=== PATIENT | male | born 1950 | race Caucasian/White ===

== ENCOUNTER 2018-06-05 15:43 | Outpatient (CLI) | payer MEDICARE, OTHER ==
--- NOTE | 2018-06-05 16:47 | ULT ---
BILATERAL RENAL ULTRASOUND COMPLETE INCLUDING COLOR AND SPECTRAL DOPPLER AND VASCULAR DUPLEX EVALUATI ON: 06/05/18 The right kidney measures 9.8 x 4.9 x 5.0 cm. The left kidney measures 11.1 x 5.0 x 5.4 cm. No renal hydronephrosis. No perinephric process. The bladder appears unremarkable. There is some minimal incre ased velocity in the right renal artery maximum peak systolic velocity of 199 cm/s. Left renal artery to aortic ratio equals 3.0. Resistive indices are minimally elevated bilaterally at 0.73 on the righ t and 0.74 on the left. There is evidence for some nodular prostate gland indenting the base of the b ladder. IMPRESSION: No renal hydronephrosis. Some borderline measurements bilaterally for the possibility of some renal a rtery stenosis. Followup CT angiogram of the abdomen and renal arteries is recommended for further assessment in this regard. POS: BEN
== END 2018-06-05 15:44 | disposition home or self-care (01) ==
LOC: ULT 15:43
PROVIDERS: ATTEND Internal Medicine Nephrology
DX: I12.9 Hypertensive chronic kidney disease with stage 1 through stage 4 chronic kidney disease, or unspecified chronic kidney disease (principal); N18.3 Chronic kidney disease, stage 3 (moderate)
CPT/HCPCS: 76700; 76770

== ENCOUNTER 2020-06-17 11:43 | Inpatient (IN) | payer MEDICARE, OTHER ==
[2020-06-17] MEDS ORDERED: Albuterol 200 PUFF (6.7GM INHALER) ONE (12:18)
[2020-06-17] MEDS ORDERED: methylPREDNISolone Sod Succ/PF 125 MG/2 ML VIAL ONE (12:19)
[2020-06-17] MEDS ORDERED: Magnesium 2 GM/50 ML BAG (IN WATER) ONE (12:19)
[2020-06-17 13:41] LABS: SARS-CoV-2 NAA Rapid Test DETECTED (NotDetected)
[2020-06-17 14:10] LABS: Hemoglobin 13.5 g/dL (14.0-18.0); Mean Corpuscular HGB CONC 33.7 g/dL (32.0-36.0); Mean Corpuscular Hemoglobin 31.2 pg (27.0-31.0); Mean Corpuscular Volume 92.4 fL (78.0-98.0); Platelet Count 167 thou/uL (130-400); RBC Distribution Width 13.2 % (11.5-14.5); Red Blood Cell (RBC) Count 4.32 mill/uL (4.70-6.10); White Blood Cell (WBC) Count 7.8 thou/uL (4.8-10.8)
[2020-06-17 14:17] LABS: ALT (SGPT) 16 U/L (8-55); AST (SGOT) 22 U/L (5-34); Albumin 3.5 g/dL (3.4-4.8); Alkaline Phosphatase 77 U/L (40-110); Anion Gap 15 mmol/L (10-20); BUN (Urea Nitrogen) 31 mg/dL (8.4-25.7); Bilirubin, Total 0.4 mg/dL (0.2-1.2); Calc. Creatinine Clearance 0 mL/min (70-130); Calcium 8.3 mg/dL (7.8-10.44); Carbon Dioxide 17 mmol/L (23-31); Chloride 109 mmol/L (98-107); Globulin 3.4 g/dL (2.4-3.5); Glucose 118 mg/dL (80-115); Potassium 3.7 mmol/L (3.5-5.1); Protein, Total 6.9 g/dL (5.8-8.1); Sodium 137 mmol/L (136-145)
[2020-06-17 14:29] LABS: Band 26 % (5-11); Eosinophils 1 % (0-10); Lymphocytes 19 % (21-51); MDiff Complete? YES; Monocytes 14 % (0-10); Neutrophil 30 % (42-75); Platelet Morphology Comment Appears Adequate; RBC Morphology Normal; Reactive Lymphocytes 10 % (0-10)
[2020-06-17 14:39] LABS: CKMB 0.5 ng/mL (0-6.6)
[2020-06-17] MEDS ORDERED: cefTRIAXone\\ROCEPHIN 2 GM VIAL ONE (15:09)
[2020-06-17] MEDS ORDERED: Ondansetron PF 4 MG/2 ML Vial IVP PRN (15:17)
[2020-06-17] MEDS ORDERED: Acetaminophen 325 MG TAB PO PRN (15:17)
[2020-06-17] MEDS ORDERED: Bisacodyl 5 MG TAB PO PRN (15:17)
[2020-06-17] MEDS ORDERED: Guaifenesin DM 100-10/5 ML UDCUP PO PRN (15:17)
[2020-06-17] MEDS ORDERED: Azithromycin 500 MG VIAL ONE (15:27)
[2020-06-17] MEDS ORDERED: Dexamethasone 4 mg/ml Vial SLOW IVP SCH (15:30)
[2020-06-17] MEDS ORDERED: Nicotine 21 MG PATCH TD SCH (16:15)
[2020-06-17] MEDS ORDERED: Sodium Chloride 0.9% 1,000 ML IV SCH (16:30)
[2020-06-17 17:03] LABS: Troponin I 0.035 ng/mL (< 0.028)
[2020-06-17 17:48] VITALS: BMI 24.4
[2020-06-17] MEDS ORDERED: Albuterol Sulfate 2.5 mg/3 ml Neb EZPAP SCH (18:30)
[2020-06-17] MEDS: Cefepime 1 GM in Sodium Chloride 0.9% 100 ML IVPB SCH (21:37)
[2020-06-17] MEDS: Doxycycline 100 MG CAP PO SCH (21:38)
[2020-06-17] MEDS: Albuterol 200 PUFF (6.7GM INHALER) INH SCH (22:30)
[2020-06-17 22:45] LABS: Troponin I 0.031 ng/mL (< 0.028)
[2020-06-18] MEDS: Albuterol 200 PUFF (6.7GM INHALER) INH SCH ×6 (02:30→21:26)
[2020-06-18] MEDS: HYDROcodone/Acetaminophen 5/325 mg Tablet PO PRN ×2 (03:23→21:53)
[2020-06-18 05:50] LABS: #Basophils 0.1 thou/uL (0.0-0.2); #Lymphocytes 0.9 thou/uL (1.20-3.40); #Monocytes 0.5 thou/uL (0.11-0.59); #Neutrophils 4.4 thou/uL (1.40-6.50); %Basophils 1.8 % (0.0-1.0); %Eosinophils 0.1 % (0.0-10.0); %Lymphocytes 15.6 % (21.0-51.0); %Monocytes 8.4 % (0.0-10.0); %Neutrophils 74.2 % (42.0-75.0); Hemoglobin 12.5 g/dL (14.0-18.0); Mean Corpuscular HGB CONC 34.1 g/dL (32.0-36.0); Mean Corpuscular Hemoglobin 31.5 pg (27.0-31.0); Mean Corpuscular Volume 92.3 fL (78.0-98.0); Mean Platelet Volume 8.8 fL (7.4-10.4); Platelet Count 176 thou/uL (130-400); Red Blood Cell (RBC) Count 3.97 mill/uL (4.70-6.10)
[2020-06-18 07:01] LABS: Anion Gap 13 mmol/L (10-20); BUN (Urea Nitrogen) 36 mg/dL (8.4-25.7); Calc. Creatinine Clearance 35 mL/min (70-130); Calcium 8.4 mg/dL (7.8-10.44); Carbon Dioxide 19 mmol/L (23-31); Chloride 109 mmol/L (98-107); Glucose 158 mg/dL (80-115); Potassium 3.8 mmol/L (3.5-5.1); Sodium 137 mmol/L (136-145)
[2020-06-18] MEDS: Ascorbic Acid 500 mg Chewable Tablet PO SCH (08:06)
[2020-06-18] MEDS: Doxycycline 100 MG CAP PO SCH ×2 (08:06→21:21)
[2020-06-18] MEDS: Zinc Sulfate 220 MG CAP PO SCH (08:06)
[2020-06-18] MEDS: Aspirin 81 mg Enteric Coated Tablet PO SCH (08:06)
[2020-06-18] MEDS: Dexamethasone 4 mg/ml Vial SLOW IVP SCH (08:10)
[2020-06-18] MEDS: Cefepime 1 GM in Sodium Chloride 0.9% 100 ML IVPB SCH ×2 (08:11→21:21)
[2020-06-18] MEDS: Enoxaparin Sodium 30 MG/0.3 ML SYRINGE SC SCH (08:12)
[2020-06-18] MEDS ORDERED: FLU VACC QS2020-21(65YR UP)/PF 240 MCG/0.7 ML SYRINGE IM ONE (09:00)
[2020-06-18] MEDS: Gabapentin 300 MG CAP PO SCH ×3 (10:43→21:21)
[2020-06-18] MEDS: Clopidogrel Bisulfate 75 MG TAB PO SCH (10:43)
[2020-06-18] MEDS: Carvedilol 6.25 MG TAB PO SCH ×2 (10:43→21:25)
[2020-06-18] MEDS: Amlodipine 10 MG TAB PO SCH ×2 (10:43→21:25)
[2020-06-18] MEDS ORDERED: Nicotine 21 MG PATCH TOP SCH (11:00)
[2020-06-18] MEDS: Tamsulosin HCl 0.4 MG CAP PO SCH (21:22)
[2020-06-18] MEDS: Atorvastatin Calcium 40 MG TAB PO SCH (21:25)
[2020-06-19] MEDS: Albuterol 200 PUFF (6.7GM INHALER) INH SCH ×5 (01:44→18:33)
[2020-06-19] MEDS: Cefepime 1 GM in Sodium Chloride 0.9% 100 ML IVPB SCH ×2 (07:29→20:15)
[2020-06-19] MEDS: Ascorbic Acid 500 mg Chewable Tablet PO SCH (07:29)
[2020-06-19] MEDS: Carvedilol 6.25 MG TAB PO SCH ×2 (07:30→20:14)
[2020-06-19] MEDS: Clopidogrel Bisulfate 75 MG TAB PO SCH (07:30)
[2020-06-19] MEDS: Zinc Sulfate 220 MG CAP PO SCH (07:30)
[2020-06-19] MEDS: Aspirin 81 mg Enteric Coated Tablet PO SCH (07:30)
[2020-06-19] MEDS: Dexamethasone 4 mg/ml Vial SLOW IVP SCH (07:30)
[2020-06-19] MEDS: Amlodipine 10 MG TAB PO SCH ×2 (07:31→20:13)
[2020-06-19] MEDS: Gabapentin 300 MG CAP PO SCH ×3 (07:31→20:11)
[2020-06-19] MEDS: Doxycycline 100 MG CAP PO SCH ×2 (07:31→20:13)
[2020-06-19] MEDS: Enoxaparin Sodium 30 MG/0.3 ML SYRINGE SC SCH (07:33)
[2020-06-19] MEDS ORDERED: Furosemide 100 MG/10 ML VIAL SLOW IVP SCH (08:15)
[2020-06-19] MEDS: Nicotine 21 MG PATCH TOP SCH (10:31)
[2020-06-19] MEDS: Atorvastatin Calcium 40 MG TAB PO SCH (20:13)
[2020-06-19] MEDS: Tamsulosin HCl 0.4 MG CAP PO SCH (20:15)
[2020-06-20] MEDS: Albuterol 200 PUFF (6.7GM INHALER) INH SCH ×7 (00:39→22:42)
[2020-06-20 05:04] LABS: #Lymphocytes 1.8 thou/uL (1.20-3.40); #Monocytes 1.8 thou/uL (0.11-0.59); #Neutrophils 13.4 thou/uL (1.40-6.50); %Basophils 0.1 % (0.0-1.0); %Eosinophils 0.1 % (0.0-10.0); %Lymphocytes 10.5 % (21.0-51.0); %Monocytes 10.6 % (0.0-10.0); %Neutrophils 78.7 % (42.0-75.0); Hemoglobin 12.6 g/dL (14.0-18.0); Mean Corpuscular HGB CONC 33.5 g/dL (32.0-36.0); Mean Corpuscular Hemoglobin 30.7 pg (27.0-31.0); Mean Corpuscular Volume 91.5 fL (78.0-98.0); Mean Platelet Volume 9.3 fL (7.4-10.4); Platelet Count 217 thou/uL (130-400)
[2020-06-20 05:24] LABS: Anion Gap 13 mmol/L (10-20); BUN (Urea Nitrogen) 44 mg/dL (8.4-25.7); CRP (Inflammatory) 4.41 mg/dL (= or < 0.5); Calc. Creatinine Clearance 35 mL/min (70-130); Calcium 8.5 mg/dL (7.8-10.44); Carbon Dioxide 22 mmol/L (23-31); Chloride 109 mmol/L (98-107); Glucose 125 mg/dL (80-115); Potassium 3.5 mmol/L (3.5-5.1); Sodium 140 mmol/L (136-145)
[2020-06-20] MEDS: Carvedilol 6.25 MG TAB PO SCH ×2 (07:18→20:43)
[2020-06-20] MEDS: Enoxaparin Sodium 30 MG/0.3 ML SYRINGE SC SCH (07:18)
[2020-06-20] MEDS: Zinc Sulfate 220 MG CAP PO SCH (07:19)
[2020-06-20] MEDS: Ascorbic Acid 500 mg Chewable Tablet PO SCH (07:19)
[2020-06-20] MEDS: Gabapentin 300 MG CAP PO SCH ×3 (07:19→20:43)
[2020-06-20] MEDS: Amlodipine 10 MG TAB PO SCH ×2 (07:19→20:43)
[2020-06-20] MEDS: Aspirin 81 mg Enteric Coated Tablet PO SCH (07:20)
[2020-06-20] MEDS: Doxycycline 100 MG CAP PO SCH ×2 (07:20→20:43)
[2020-06-20] MEDS: Dexamethasone 4 mg/ml Vial SLOW IVP SCH (07:20)
[2020-06-20] MEDS: Clopidogrel Bisulfate 75 MG TAB PO SCH (07:20)
[2020-06-20] MEDS: Cefepime 1 GM in Sodium Chloride 0.9% 100 ML IVPB SCH ×2 (08:44→20:50)
[2020-06-20] MEDS: Nicotine 21 MG PATCH TOP SCH (09:22)
[2020-06-20] MEDS: Tamsulosin HCl 0.4 MG CAP PO SCH (20:43)
[2020-06-20] MEDS: Atorvastatin Calcium 40 MG TAB PO SCH (20:44)
[2020-06-21] MEDS: Albuterol 200 PUFF (6.7GM INHALER) INH SCH ×5 (03:14→15:07)
[2020-06-21 05:05] LABS: #Neutrophils 11.9 thou/uL (1.40-6.50); %Basophils 0.2 % (0.0-1.0); %Eosinophils 0.3 % (0.0-10.0); %Lymphocytes 12.4 % (21.0-51.0); %Monocytes 12.7 % (0.0-10.0); %Neutrophils 74.3 % (42.0-75.0); Hemoglobin 12.7 g/dL (14.0-18.0); Mean Corpuscular HGB CONC 33.6 g/dL (32.0-36.0); Mean Corpuscular Hemoglobin 30.8 pg (27.0-31.0); Mean Corpuscular Volume 91.7 fL (78.0-98.0); Platelet Count 256 thou/uL (130-400); RBC Distribution Width 13.1 % (11.5-14.5); Red Blood Cell (RBC) Count 4.11 mill/uL (4.70-6.10)
[2020-06-21] MEDS: Clopidogrel Bisulfate 75 MG TAB PO SCH (07:17)
[2020-06-21] MEDS: Carvedilol 6.25 MG TAB PO SCH (07:17)
[2020-06-21] MEDS: Doxycycline 100 MG CAP PO SCH (07:17)
[2020-06-21] MEDS: Gabapentin 300 MG CAP PO SCH ×2 (07:17→15:06)
[2020-06-21] MEDS: Amlodipine 10 MG TAB PO SCH (07:17)
[2020-06-21] MEDS: Ascorbic Acid 500 mg Chewable Tablet PO SCH (07:17)
[2020-06-21] MEDS: Zinc Sulfate 220 MG CAP PO SCH (07:18)
[2020-06-21] MEDS: Enoxaparin Sodium 30 MG/0.3 ML SYRINGE SC SCH (07:18)
[2020-06-21] MEDS: Aspirin 81 mg Enteric Coated Tablet PO SCH (07:18)
[2020-06-21] MEDS: Dexamethasone 4 mg/ml Vial SLOW IVP SCH (07:18)
[2020-06-21] MEDS: Cefepime 1 GM in Sodium Chloride 0.9% 100 ML IVPB SCH (07:24)
[2020-06-21] MEDS: Nicotine 21 MG PATCH TOP SCH (11:10)
[2020-06-21 16:22] VITALS: BP 162/90; TEMP 97.3
== END 2020-06-21 16:00 | disposition home or self-care (01) | DRG 177 ==
LOC: ERS 11:43 → 2SW 15:06
PROVIDERS: ADMIT Hospitalist; ATTEND Hospitalist
PROC: 8E0ZXY6 Isolation (ICD-10-PCS; principal; 2020-06-17)
DX: U07.1 COVID-19 (principal); J12.82 Pneumonia due to coronavirus disease 2019; J96.01 Acute respiratory failure with hypoxia; I69.351 Hemiplegia and hemiparesis following cerebral infarction affecting right dominant side; J44.1 Chronic obstructive pulmonary disease with (acute) exacerbation; J44.0 Chronic obstructive pulmonary disease with (acute) lower respiratory infection; I25.10 Atherosclerotic heart disease of native coronary artery without angina pectoris; I12.9 Hypertensive chronic kidney disease with stage 1 through stage 4 chronic kidney disease, or unspecified chronic kidney disease; N18.30 Chronic kidney disease, stage 3 unspecified; I73.9 Peripheral vascular disease, unspecified; F17.210 Nicotine dependence, cigarettes, uncomplicated; Z95.5 Presence of coronary angioplasty implant and graft; Z71.6 Tobacco abuse counseling
CPT/HCPCS: 0240U; 36415; 36416; 71045; 80048; 80053; 82553; 83605; 83735; 83880; 84145; 84484; 85025; 85379; 86140; 87040; 90471; 90662; 93005; 96365; 96367; 96375; G0008; J0456; J0692; J0696; J1100; J1650; J1940; J2930; J3475; J3490

== ENCOUNTER 2020-06-27 14:25 | Emergency (ER) | payer MEDICARE, OTHER ==
[2020-06-27 14:57] LABS: #Basophils 0.1 thou/uL (0.0-0.2); #Eosinphils 0.1 thou/uL (0.0-0.7); #Lymphocytes 1.6 thou/uL (1.20-3.40); #Monocytes 1.2 thou/uL (0.11-0.59); #Neutrophils 9.5 thou/uL (1.40-6.50); %Basophils 0.4 % (0.0-1.0); %Eosinophils 0.5 % (0.0-10.0); %Lymphocytes 12.5 % (21.0-51.0); %Neutrophils 76.5 % (42.0-75.0); Hemoglobin 12.1 g/dL (14.0-18.0); Mean Corpuscular HGB CONC 34.1 g/dL (32.0-36.0); Mean Corpuscular Hemoglobin 31.6 pg (27.0-31.0); Mean Corpuscular Volume 92.9 fL (78.0-98.0); Mean Platelet Volume 8.5 fL (7.4-10.4); Platelet Count 318 thou/uL (130-400); RBC Distribution Width 13.2 % (11.5-14.5); Red Blood Cell (RBC) Count 3.83 mill/uL (4.70-6.10); White Blood Cell (WBC) Count 12.4 thou/uL (4.8-10.8)
[2020-06-27 15:21] LABS: ALT (SGPT) 30 U/L (8-55); AST (SGOT) 17 U/L (5-34); Albumin 3.1 g/dL (3.4-4.8); Alkaline Phosphatase 89 U/L (40-110); Anion Gap 13 mmol/L (10-20); BUN (Urea Nitrogen) 31 mg/dL (8.4-25.7); Bilirubin, Total 0.3 mg/dL (0.2-1.2); Calc. Creatinine Clearance 0 mL/min (70-130); Calcium 8.8 mg/dL (7.8-10.44); Carbon Dioxide 23 mmol/L (23-31); Chloride 109 mmol/L (98-107); Glucose 177 mg/dL (80-115); Protein, Total 6.1 g/dL (5.8-8.1); Sodium 141 mmol/L (136-145)
[2020-06-27] MEDS ORDERED: Morphine 4 MG/ML VIAL ONE (15:53)
[2020-06-27] MEDS ORDERED: Ondansetron PF 4 MG/2 ML Vial ONE (15:53)
[2020-06-27 16:37] LABS: Bacteria/HPF None Seen HPF (None Seen); Bilirubin Negative (Negative); Blood, Urine Negative (Negative); Clarity Clear (Clear); Glucose, Urine (Dipstick) Normal (Negative); Ketone, Urine Negative (Negative); Leukocyte Negative Leu/uL (Negative); Nitrite Negative (Negative); Protein, Urine (Dipstick) 50 mg/dL (Neg-Trace); RBC/HPF 0-3 HPF (0-3); Specific Gravity, Urine 1.016 (1.002-1.036); Squamous Epithelial 0-3 HPF (0-3); Urobilinogen Normal mg/dL (Less than 2); WBC/HPF None Seen HPF (0-3); pH, Urine 5.5 (5.0-9.0)
[2020-06-27] MEDS ORDERED: Ketorolac Tromethamine 30 MG/ML VIAL ONE (17:03)
== END 2020-06-27 17:46 | disposition home or self-care (01) ==
LOC: ERS 14:25
DX: M51.36 Other intervertebral disc degeneration, lumbar region (principal); I10 Essential (primary) hypertension; I25.2 Old myocardial infarction; E78.00 Pure hypercholesterolemia, unspecified; Z86.16 Personal history of COVID-19; Z86.73 Personal history of transient ischemic attack (TIA), and cerebral infarction without residual deficits; F17.210 Nicotine dependence, cigarettes, uncomplicated; Z79.899 Other long term (current) drug therapy
CPT/HCPCS: 36415; 74176; 80053; 81003; 81015; 85025; 96374; 96375; J1885; J2270; J2405

== ENCOUNTER 2023-04-19 00:19 | Inpatient (IN) | payer MEDICARE, OTHER ==
[2023-04-19 00:54] VITALS: BMI 25.0
[2023-04-19] MEDS ORDERED: Ondansetron ODT 4 MG TAB PO PRN (01:24)
[2023-04-19] MEDS ORDERED: Ondansetron PF 4 MG/2 ML Vial IVP PRN (01:24)
[2023-04-19] MEDS ORDERED: Acetaminophen 650 MG Suppository PR PRN (01:24)
[2023-04-19] MEDS ORDERED: Ipratropium/Albuterol 3 ML NEB NEB PRN (01:24)
[2023-04-19] MEDS ORDERED: Acetaminophen 325 MG TAB PO PRN (01:24)
[2023-04-19] MEDS ORDERED: hydrALAZINE 20 MG/ML VIAL SLOW IVP SCH (01:30)
[2023-04-19] MEDS: Ipratropium/Albuterol 3 ML NEB NEB SCH ×6 (02:20→22:18)
[2023-04-19 04:43] LABS: SARS-CoV-2 NAA Rapid Test Not Detected (NotDetected)
[2023-04-19] MEDS: Losartan 25 MG TAB PO SCH ×2 (08:00→20:03)
[2023-04-19] MEDS: Rosuvastatin 20 MG TAB PO SCH (08:00)
[2023-04-19] MEDS ORDERED: predniSONE 20 MG TAB PO SCH (08:00)
[2023-04-19] MEDS: Amlodipine 10 MG TAB PO SCH ×2 (08:01→20:02)
[2023-04-19] MEDS: Carvedilol 6.25 MG TAB PO SCH ×2 (08:01→17:54)
[2023-04-19] MEDS: Heparin 5,000 UNITS/ML VIAL SC SCH ×3 (08:01→20:03)
[2023-04-19] MEDS ORDERED: Nicotine 21 MG PATCH TD SCH ×2 (09:00→11:15)
[2023-04-19 09:52] LABS: #Monocytes 0.1 thou/uL (0.11-0.59); #Neutrophils 6.8 thou/uL (1.40-6.50); %Basophils 0.4 % (0.0-1.0); %Eosinophils 0.1 % (0.0-10.0); %Lymphocytes 15.6 % (21.0-51.0); %Neutrophils 82.2 % (42.0-75.0); Hematocrit 35.2 % (42.0-52.0); Hemoglobin 11.9 g/dL (14.0-18.0); Mean Corpuscular HGB CONC 33.8 g/dL (32.0-36.0); Mean Corpuscular Hemoglobin 30.7 pg (27.0-31.0); Mean Platelet Volume 10.4 fL (7.4-10.4); Platelet Count 240 10x3/uL (130-400); RBC Distribution Width 15.5 % (11.5-14.5); Red Blood Cell (RBC) Count 3.87 mill/uL (4.70-6.10); White Blood Cell (WBC) Count 8.3 10x3/uL (4.8-10.8)
[2023-04-19 10:17] LABS: ALT (SGPT) 27 U/L (8-55); AST (SGOT) 21 U/L (5-34); Albumin 3.5 g/dL (3.4-4.8); Alkaline Phosphatase 111 U/L (40-110); Anion Gap 15 mmol/L (10-20); BUN (Urea Nitrogen) 25 mg/dL (8.4-25.7); Bilirubin, Total 0.3 mg/dL (0.2-1.2); Calc. Creatinine Clearance 26 mL/min (70-130); Calcium 9.4 mg/dL (7.8-10.44); Carbon Dioxide 18 mmol/L (23-31); Chloride 109 mmol/L (98-107); Estimated GFR 21; Globulin 3.6 g/dL (2.4-3.5); Glucose 204 mg/dL (83-110); Potassium 3.4 mmol/L (3.5-5.1); Protein, Total 7.1 g/dL (5.8-8.1); Sodium 139 mmol/L (136-145)
[2023-04-19 10:20] LABS: Troponin I 0.021 ng/mL (< 0.028)
[2023-04-19] MEDS ORDERED: Ipratropium/Albuterol 3 ML NEB NEB SCH (10:30)
[2023-04-19] MEDS ORDERED: methylPREDNISolone Sod Succ 40 MG VIAL IVP SCH (11:00)
[2023-04-19] MEDS: methylPREDNISolone Sod Succ 40 MG VIAL IVP SCH (17:54)
[2023-04-19] MEDS: Tamsulosin HCl 0.4 MG CAP PO SCH (20:02)
[2023-04-19] MEDS ORDERED: Melatonin 3 MG TAB PO PRN (20:15)
[2023-04-19] MEDS ORDERED: Guaifenesin DM 100-10/5 ML UDCUP PO PRN (20:15)
[2023-04-19] MEDS ORDERED: Non-Formulary Item 1 EACH (Atorvastatin Calcium [Atorvastatin Calcium] 80 MG Tablet) PO SCH (21:00)
[2023-04-20] MEDS: methylPREDNISolone Sod Succ 40 MG VIAL IVP SCH ×4 (00:13→20:25)
[2023-04-20] MEDS: Ipratropium/Albuterol 3 ML NEB NEB SCH ×6 (02:11→22:16)
[2023-04-20] MEDS: Losartan 25 MG TAB PO SCH (08:05)
[2023-04-20] MEDS: Carvedilol 6.25 MG TAB PO SCH ×2 (08:05→16:39)
[2023-04-20] MEDS: Rosuvastatin 20 MG TAB PO SCH (08:05)
[2023-04-20] MEDS: Amlodipine 10 MG TAB PO SCH ×2 (08:05→20:24)
[2023-04-20] MEDS: Heparin 5,000 UNITS/ML VIAL SC SCH ×3 (08:05→20:24)
[2023-04-20] MEDS: Aspirin Chewable 81 MG TAB PO SCH (08:05)
[2023-04-20] MEDS: Clopidogrel Bisulfate 75 MG TAB PO SCH (08:05)
[2023-04-20] MEDS: Nicotine 21 MG PATCH TD SCH (08:06)
[2023-04-20 10:27] LABS: #Monocytes 0.7 thou/uL (0.11-0.59); #Neutrophils 20.4 thou/uL (1.40-6.50); %Basophils 0.1 % (0.0-1.0); %Neutrophils 88.9 % (42.0-75.0); Hematocrit 30.8 % (42.0-52.0); Hemoglobin 10.5 g/dL (14.0-18.0); Mean Corpuscular HGB CONC 34.1 g/dL (32.0-36.0); Mean Corpuscular Hemoglobin 31.2 pg (27.0-31.0); Mean Corpuscular Volume 91.4 fl (78.0-98.0); Mean Platelet Volume 10.6 fL (7.4-10.4); Platelet Count 228 10x3/uL (130-400); RBC Distribution Width 15.9 % (11.5-14.5); Red Blood Cell (RBC) Count 3.37 mill/uL (4.70-6.10); White Blood Cell (WBC) Count 22.9 10x3/uL (4.8-10.8)
[2023-04-20 10:51] LABS: Anion Gap 16 mmol/L (10-20); BUN (Urea Nitrogen) 38 mg/dL (8.4-25.7); CRP (Inflammatory) Less than 0.50 mg/dL (= or < 0.5); Calc. Creatinine Clearance 25 mL/min (70-130); Calcium 8.9 mg/dL (7.8-10.44); Carbon Dioxide 18 mmol/L (23-31); Chloride 109 mmol/L (98-107); Estimated GFR 20; Glucose 314 mg/dL (83-110); Potassium 3.5 mmol/L (3.5-5.1); Sodium 139 mmol/L (136-145)
[2023-04-20] MEDS: Lactated Ringer's 1,000 ML IV SCH ×2 (11:29→20:30)
[2023-04-20] MEDS ORDERED: Lactated Ringer's 500 ML IV SCH (11:30)
[2023-04-20] MEDS: Doxycycline 100 MG in Sodium Chloride 0.9% 100 ML IVPB SCH ×2 (11:32→23:57)
[2023-04-20] MEDS ORDERED: Bisacodyl 5 MG TAB PO PRN (19:24)
[2023-04-20] MEDS ORDERED: Guaifenesin DM 100-10/5 ML UDCUP PO PRN (19:45)
[2023-04-20] MEDS: guaiFENesin ER 600 MG TAB PO SCH (20:24)
[2023-04-20] MEDS: Tamsulosin HCl 0.4 MG CAP PO SCH (20:24)
[2023-04-20 20:29] LABS: Anion Gap 14 mmol/L (10-20); BUN (Urea Nitrogen) 42 mg/dL (8.4-25.7); Calc. Creatinine Clearance 26 mL/min (70-130); Calcium 9.2 mg/dL (7.8-10.44); Carbon Dioxide 18 mmol/L (23-31); Chloride 109 mmol/L (98-107); Estimated GFR 21; Glucose 223 mg/dL (83-110); Potassium 3.6 mmol/L (3.5-5.1); Sodium 137 mmol/L (136-145)
[2023-04-21] MEDS: Ipratropium/Albuterol 3 ML NEB NEB SCH ×5 (02:12→14:34)
[2023-04-21 06:21] LABS: Hemoglobin 11.7 g/dL (14.0-18.0); Manual Diff?? YES; Mean Corpuscular HGB CONC 33.4 g/dL (32.0-36.0); Mean Corpuscular Hemoglobin 30.5 pg (27.0-31.0); Mean Corpuscular Volume 91.4 fl (78.0-98.0); Mean Platelet Volume 10.7 fL (7.4-10.4); Platelet Count 269 10x3/uL (130-400); RBC Distribution Width 16.1 % (11.5-14.5); Red Blood Cell (RBC) Count 3.83 mill/uL (4.70-6.10); White Blood Cell (WBC) Count 25.4 10x3/uL (4.8-10.8)
[2023-04-21 06:42] LABS: Anion Gap 14 mmol/L (10-20); BUN (Urea Nitrogen) 46 mg/dL (8.4-25.7); Calc. Creatinine Clearance 27 mL/min (70-130); Calcium 9.6 mg/dL (7.8-10.44); Carbon Dioxide 20 mmol/L (23-31); Chloride 111 mmol/L (98-107); Estimated GFR 22; Glucose 158 mg/dL (83-110); Magnesium 2.2 mg/dL (1.6-2.6); Potassium 3.6 mmol/L (3.5-5.1); Sodium 141 mmol/L (136-145)
[2023-04-21 07:40] LABS: Delete Auto Diff?? YES
[2023-04-21 08:11] LABS: Band 1 % (5-11); CellaVision Operator ID LAB.KW3; Lymphocytes 3 % (21-51); Metamyelocyte 1 % (0-0); Monocytes 2 % (0-10); Neutrophil 92 % (42-75); Platelet Adequacy Comment Platelets Normal; Polychromasia SLIGHT = 2-3 cells HPF (0-2); Reactive Lymphocytes 1 % (0-10); Total Cell Count 100
[2023-04-21] MEDS: Rosuvastatin 20 MG TAB PO SCH (08:30)
[2023-04-21] MEDS: Nicotine 21 MG PATCH TD SCH (08:30)
[2023-04-21] MEDS: guaiFENesin ER 600 MG TAB PO SCH (08:32)
[2023-04-21] MEDS: Heparin 5,000 UNITS/ML VIAL SC SCH ×2 (08:33→16:36)
[2023-04-21] MEDS: Clopidogrel Bisulfate 75 MG TAB PO SCH (08:33)
[2023-04-21] MEDS: Amlodipine 10 MG TAB PO SCH (08:33)
[2023-04-21] MEDS: Carvedilol 6.25 MG TAB PO SCH ×2 (08:33→16:35)
[2023-04-21] MEDS: Aspirin Chewable 81 MG TAB PO SCH (08:33)
[2023-04-21] MEDS: Lactated Ringer's 1,000 ML IV SCH (08:34)
[2023-04-21] MEDS: methylPREDNISolone Sod Succ 40 MG VIAL IVP SCH ×2 (08:34→16:35)
[2023-04-21] MEDS ORDERED: Ezetimibe 10 MG TAB PO SCH (09:00)
[2023-04-21 10:40] LABS: Bacteria/HPF None Seen HPF (None Seen); Bilirubin Negative (Negative); Blood, Urine Negative (Negative); Clarity Clear (Clear); Glucose, Urine (Dipstick) 500 mg/dL (Negative); Ketone, Urine Negative (Negative); Leukocyte Negative Leu/uL (Negative); Nitrite Negative (Negative); Protein, Urine (Dipstick) 20 mg/dL (Neg-Trace); RBC/HPF 0-3 HPF (0-3); Squamous Epithelial None Seen HPF (0-3); Urobilinogen Normal mg/dL (Less than 2); WBC/HPF None Seen HPF (0-3); pH, Urine 6.5 (5.0-9.0)
[2023-04-21] MEDS: Doxycycline 100 MG in Sodium Chloride 0.9% 100 ML IVPB SCH (12:22)
[2023-04-21 16:38] VITALS: BP 158/77; TEMP 98.2
== END 2023-04-21 18:06 | disposition home health service (06) | DRG 189 ==
LOC: T4-B 00:19
PROVIDERS: ADMIT Family Medicine; ATTEND Family Medicine
DX: J96.01 Acute respiratory failure with hypoxia (principal); I21.A1 Myocardial infarction type 2; J44.1 Chronic obstructive pulmonary disease with (acute) exacerbation; N17.9 Acute kidney failure, unspecified; I13.0 Hypertensive heart and chronic kidney disease with heart failure and stage 1 through stage 4 chronic kidney disease, or unspecified chronic kidney disease; I50.22 Chronic systolic (congestive) heart failure; N18.4 Chronic kidney disease, stage 4 (severe); I25.10 Atherosclerotic heart disease of native coronary artery without angina pectoris; I73.9 Peripheral vascular disease, unspecified; E78.5 Hyperlipidemia, unspecified; Z79.899 Other long term (current) drug therapy; Z82.49 Family history of ischemic heart disease and other diseases of the circulatory system; Z79.01 Long term (current) use of anticoagulants; D63.1 Anemia in chronic kidney disease; Z11.52 Encounter for screening for COVID-19
CPT/HCPCS: 36415; 80048; 80053; 81001; 83735; 84100; 84145; 84484; 85025; 86140; 87070; 87205; 87633; 94640; J0360; J1644; J2920; J3490; J7120; J7512; J7620

== ENCOUNTER 2023-08-21 21:37 | Inpatient (IN) | payer MEDICARE, OTHER ==
[2023-08-21 22:00] VITALS: BMI 28.0
[2023-08-21] MEDS ORDERED: Albuterol 200 PUFF INH INH PRN (23:21)
[2023-08-21] MEDS ORDERED: Ondansetron PF 4 MG/2 ML Vial IVP PRN (23:23)
[2023-08-21] MEDS ORDERED: Ondansetron ODT 4 MG TAB PO PRN (23:23)
[2023-08-22 00:06] LABS: #Basophils 0.05 10x3/uL (0.0-0.2); %Basophils 0.7 % (0.0-1.0); %Eosinophils 0.4 % (0.0-10.0); %Lymphocytes 19.9 % (21.0-51.0); %Monocytes 1.3 % (0.0-10.0); %Neutrophils 77.6 % (42.0-75.0); Hemoglobin 13.1 g/dL (14.0-18.0); Mean Corpuscular HGB CONC 33.6 g/dL (32.0-36.0); Mean Corpuscular Hemoglobin 30.7 pg (27.0-31.0); Mean Corpuscular Volume 91.3 fL (78.0-98.0); Mean Platelet Volume 10.3 fL (7.4-10.4); Platelet Count 227 10x3/uL (130-400); RBC Distribution Width 14.6 % (11.5-14.5); Red Blood Cell (RBC) Count 4.27 mill/uL (4.70-6.10)
[2023-08-22 00:25] LABS: Anion Gap 15 mmol/L (10-20); BUN (Urea Nitrogen) 26 mg/dL (8.4-25.7); Calc. Creatinine Clearance 26 mL/min (70-130); Calcium 10.3 mg/dL (7.8-10.44); Carbon Dioxide 21 mmol/L (23-31); Chloride 112 mmol/L (98-107); Estimated GFR 21; Glucose 147 mg/dL (83-110); Potassium 4.1 mmol/L (3.5-5.1); Sodium 144 mmol/L (136-145)
[2023-08-22] MEDS: Ipratropium/Albuterol 3 ML NEB NEB SCH (00:52)
[2023-08-22] MEDS: Mometasone 200 MCG/Formoterol 5 MCG 120 PUFF INHALER INH SCH (08:47)
[2023-08-22] MEDS ORDERED: Famotidine/PF 20 mg/2ml Vial SLOW IVP SCH (09:00)
[2023-08-22] MEDS: Ezetimibe 10 MG TAB PO SCH (10:07)
[2023-08-22] MEDS: Carvedilol 6.25 MG TAB PO SCH (10:07)
[2023-08-22] MEDS: Clopidogrel Bisulfate 75 MG TAB PO SCH (10:07)
[2023-08-22] MEDS: Famotidine 20 MG TAB PO SCH (10:07)
[2023-08-22] MEDS: Doxycycline 100 MG CAP PO SCH (10:08)
[2023-08-22] MEDS: Multivitamin W/ Minerals 1 TAB PO SCH (10:08)
[2023-08-22] MEDS: Aspirin Chewable 81 MG TAB PO SCH (10:08)
[2023-08-22] MEDS: methylPREDNISolone Sod Succ 40 MG VIAL IVP SCH (10:08)
[2023-08-22] MEDS: Losartan 25 MG TAB PO SCH (10:08)
[2023-08-22 13:12] VITALS: BMI 28.0
[2023-08-22] MEDS: Nicotine 14 MG PATCH TD PRN (16:29)
[2023-08-22] MEDS: Furosemide 20 MG (2 mL) VIAL SLOW IVP SCH (16:29)
[2023-08-22] MEDS: Rosuvastatin 10 MG TAB PO SCH (20:17)
[2023-08-22] MEDS: Enoxaparin 100 MG (1 mL) SYRINGE SC SCH (20:18)
[2023-08-23] MEDS: Melatonin 3 MG TAB PO PRN (02:44)
[2023-08-23] MEDS: Furosemide 20 MG (2 mL) VIAL SLOW IVP SCH (06:42)
[2023-08-23 08:06] LABS: Anion Gap 16 mmol/L (10-20); BUN (Urea Nitrogen) 42 mg/dL (8.4-25.7); Calc. Creatinine Clearance 25 mL/min (70-130); Calcium 9.6 mg/dL (7.8-10.44); Carbon Dioxide 18 mmol/L (23-31); Chloride 110 mmol/L (98-107); Estimated GFR 20; Glucose 213 mg/dL (83-110); Magnesium 2.1 mg/dL (1.6-2.6); Potassium 4.1 mmol/L (3.5-5.1); Sodium 140 mmol/L (136-145)
[2023-08-23] MEDS: Polyethylene Glycol 3350 17 GM Packet PO SCH (09:09)
[2023-08-23] MEDS: hydrALAZINE 20 MG/ML VIAL SLOW IVP PRN (13:44)
[2023-08-23] MEDS: Amlodipine 5 MG TAB PO SCH (13:44)
[2023-08-23] MEDS: Acetaminophen 325 MG TAB PO PRN (20:19)
[2023-08-23] MEDS: Atorvastatin Calcium 40 MG TAB PO SCH (20:20)
[2023-08-23] MEDS: Tamsulosin HCl 0.4 MG CAP PO SCH (20:22)
[2023-08-23] MEDS ORDERED: Tamsulosin HCl 0.4 MG CAP PO SCH (21:00)
[2023-08-24 05:43] LABS: #Basophils 0.03 10x3/uL (0.0-0.2); #Eosinphils Less than 0.03 10x3/uL (0.0-0.7); %Basophils 0.2 % (0.0-1.0); %Lymphocytes 9.5 % (21.0-51.0); %Monocytes 3.9 % (0.0-10.0); %Neutrophils 85.1 % (42.0-75.0); Hematocrit 34.9 % (42.0-52.0); Hemoglobin 11.4 g/dL (14.0-18.0); Mean Corpuscular HGB CONC 32.7 g/dL (32.0-36.0); Mean Corpuscular Hemoglobin 30.6 pg (27.0-31.0); Mean Corpuscular Volume 93.8 fL (78.0-98.0); Mean Platelet Volume 10.8 fL (7.4-10.4); Platelet Count 245 10x3/uL (130-400); RBC Distribution Width 15.3 % (11.5-14.5); Red Blood Cell (RBC) Count 3.72 mill/uL (4.70-6.10)
[2023-08-24 06:09] LABS: Anion Gap 16 mmol/L (10-20); BUN (Urea Nitrogen) 50 mg/dL (8.4-25.7); Calc. Creatinine Clearance 27 mL/min (70-130); Calcium 9.6 mg/dL (7.8-10.44); Carbon Dioxide 18 mmol/L (23-31); Chloride 110 mmol/L (98-107); Estimated GFR 22; Glucose 232 mg/dL (83-110); Potassium 4.6 mmol/L (3.5-5.1); Sodium 139 mmol/L (136-145)
[2023-08-24] MEDS: Amlodipine 5 MG TAB PO SCH (08:42)
[2023-08-24 16:16] VITALS: BP 164/85; TEMP 98.4
[2023-08-24] MEDS ORDERED: Apixaban 5 MG TAB PO SCH (21:00)
[2023-08-25] MEDS ORDERED: predniSONE 20 MG TAB PO SCH (08:00)
== END 2023-08-24 16:35 | disposition home health service (06) | DRG 190 ==
LOC: 2NO 21:37 → OBSVTOIN 08-23 14:06
PROVIDERS: ADMIT Student in an Organized Health Care Education/Training Program; ATTEND Family Medicine
DX: J44.1 Chronic obstructive pulmonary disease with (acute) exacerbation (principal); I50.23 Acute on chronic systolic (congestive) heart failure; I48.92 Unspecified atrial flutter; I13.0 Hypertensive heart and chronic kidney disease with heart failure and stage 1 through stage 4 chronic kidney disease, or unspecified chronic kidney disease; N18.4 Chronic kidney disease, stage 4 (severe); E78.5 Hyperlipidemia, unspecified; F17.210 Nicotine dependence, cigarettes, uncomplicated; I48.91 Unspecified atrial fibrillation; I25.10 Atherosclerotic heart disease of native coronary artery without angina pectoris; I73.9 Peripheral vascular disease, unspecified; N28.9 Disorder of kidney and ureter, unspecified; Z86.73 Personal history of transient ischemic attack (TIA), and cerebral infarction without residual deficits; Z79.82 Long term (current) use of aspirin; Z79.899 Other long term (current) drug therapy; Z98.890 Other specified postprocedural states; Z95.818 Presence of other cardiac implants and grafts
CPT/HCPCS: 36415; 71045; 80048; 83735; 83880; 85025; 93005; 93010; 93306; 94640; 96372; 96374; 96375; 96376; G0378; J0360; J1650; J1940; J2920; J7620